=== PATIENT | male | born 1975 | race American Indian/Alaskan Native ===

== ENCOUNTER 2017-07-26 11:25 | Emergency (ER) | payer SELFPAY ==
[2017-07-26 11:44] VITALS: BMI 27.1
[2017-07-26] MEDS ORDERED: Naloxone 0.4 mg/ml Inj (Adult) IVP STA ×4 (12:01→13:48)
--- NOTE | 2017-07-26 12:05 | ED PDOC ---
Arrival/HPI - General Time Seen by Provider: 07/26/17 11:36 Historian: Patient (Patient providied limited history "I got tired and laid down."), EMS EM Caveat: Intoxicated - History of Present Illness Narrative History of Present Illness (Text): 07/26/17 12:02 A 42 year old male, whose past medical history includes asthmatic bronchitis, presents to the emergency department via EMS after being called by a friend who states the patient got tired and laid down on the ground on the street. As per EMS, the patient's friend removed something from the patient's pocket and left immediately upon their arrival. The patient admits to drinking alcohol, but denies any drug use. At this time the patient denies any trauma, chest pain, abdominal pain, headaches, or any other complaints at this time. Time/Duration: Prior to Arrival Symptom Onset: Sudden Symptom Course: Unchanged Quality: Other Activities at Onset: Light Context: Street Past Medical History - Provider Review Nursing Documentation Reviewed: Yes Family/Social History - Physician Review Nursing Documentation Reviewed: Yes Family/Social History: No Known Family HX Allergies/Home Meds Allergies/Adverse Reactions: Allergies No Known Allergies Allergy (Verified 07/26/17 11:57) Home Medications: Home Meds Medication Instructions Recorded Confirmed No Known Home Med 07/26/17 07/26/17 Review of Systems - Physician Review All systems were reviewed & negative as marked: Yes - Review of Systems Cardiovascular: absent: Chest Pain Gastrointestinal: absent: Abdominal Pain Neurological: absent: Headache Psychiatric: absent: Depression, Suicidal Ideation Physical Exam Vital Signs Reviewed: Yes Vital Signs Temp Pulse Resp BP Pulse Ox 07/26/17 16:57 97.9 F 70 16 121/73 100 07/26/17 13:25 97.7 F 77 17 128/93 H 98 07/26/17 11:45 97.6 F 96 H 22 106/52 L 96 Temperature: Afebrile Blood Pressure: Hypotensive Pulse: Tachycardic Respiratory Rate: Normal Appearance: Positive for: Well-Appearing, Non-Toxic, Comfortable Pain Distress: None Mental Status: Positive for: Alert and Oriented X 3 - Systems Exam Head: Present: Atraumatic, Normocephalic Pupils: Present: PERRL Extroacular Muscles: Present: EOMI Conjunctiva: Present: Normal Mouth: Present: Moist Mucous Membranes Nose (External): Present: Atraumatic Neck: Present: Normal Range of Motion Respiratory/Chest: Present: Clear to Auscultation, Good Air Exchange. No: Respiratory Distress, Accessory Muscle Use Cardiovascular: Present: Regular Rate and Rhythm, Normal S1, S2. No: Murmurs Abdomen: Present: Normal Bowel Sounds. No: Tenderness, Distention, Peritoneal Signs Back: Present: Normal Inspection Upper Extremity: Present: Normal Inspection. No: Cyanosis, Edema Lower Extremity: Present: Normal Inspection. No: Edema Neurological: Present: GCS=15, CN II-XII Intact, Speech Normal, Motor Func Grossly Intact, Normal Sensory Function. No: Other (focal decifits ) Skin: Present: Warm, Dry, Normal Color. No: Rashes Psychiatric: Present: Lethargic Medical Decision Making ED Course and Treatment: 07/26/17 12:24 Progress Notes: EKG: Ordered, reviewed, and independently interpreted the EKG. Rate : 70 BPM Rhythm : NSR Interpretation : No ST-segment elevations or depressions, no T-wave inversions, normal intervals, no acute ischemia. Comparison : No previous EKG for comparison. the pt was given several doses of narcan due to somnolence however this did not seem to have much effect. 07/26/17 16:19 the pt is now alert and oriented x4, pleasant, no distress, admits to drinking alcohol "since wednesday" and is ambulating around the ED with steady gait. - Lab Interpretations Lab Results: 07/26/17 12:15 07/26/17 12:15 Lab Results 07/26/17 13:54: Urine Opiates Screen Negative, Urine Methadone Screen Negative, Ur Barbiturates Screen Negative, Ur Phencyclidine Scrn Negative, Ur Amphetamines Screen Negative, U Benzodiazepines Scrn Negative, U Oth Cocaine Metabols Negative, U Cannabinoids Screen Negative 07/26/17 13:54: Urine Color Yellow, Urine Appearance Sl cloudy, Urine pH 6.0, Ur Specific Traphill 1.025, Urine Protein 30 H, Urine Glucose (UA) Negative, Urine Ketones Negative, Urine Blood Trace-intact H, Urine Nitrate Negative, Urine Bilirubin Negative, Urine Urobilinogen 0.2, Ur Leukocyte Esterase Negative , Urine RBC 1 - 3, Urine WBC 1 - 3, Ur Epithelial Cells 4 - 5, Urine Bacteria Many 07/26/17 12:15: Alcohol, Quantitative 236 H 07/26/17 12:15: Sodium 147, Potassium 4.0, Chloride 106, Carbon Dioxide 25, Anion Gap 20, BUN 14, Creatinine 1.1, Est GFR ( Amer) > 60, Est GFR (Non- Af Amer) > 60, Random Glucose 115 H, Calcium 9.0, Total Bilirubin 0.3, AST 61 H , ALT 66 H, Alkaline Phosphatase 119, Total Protein 7.7, Albumin 4.1, Globulin 3.5, Albumin/Globulin Ratio 1.2 07/26/17 12:15: WBC 7.4, RBC 5.05, Hgb 14.5, Hct 44.3, MCV 87.7, MCH 28.7, MCHC 32.7, RDW 13.0, Plt Count 235, MPV 10.5, Gran % 61.1, Lymph % (Auto) 30.8, Gregory % (Auto) 4.5, Eos % (Auto) 3.1, Baso % (Auto) 0.5, Gran # 4.50, Lymph # 2.3, Gregory # 0.3, Eos # 0.2, Baso # 0.04 - RAD Interpretation Radiology Orders: 07/26/17 12:00 HEAD W/O CONTRAST [CT] Stat CHEST PORTABLE [RAD] Stat - Medication Orders Current Medication Orders: Discontinued Medications Naloxone HCl (Narcan) 0.4 mg IVP STAT STA Stop: 07/26/17 12:02 Last Admin: 07/26/17 12:02 Dose: 0.4 mg IVP Administration Document 07/26/17 12:02 AB (Rec: 07/26/17 12:28 AB [id number]) Charges for Administration # of IVP Administrations 1 Naloxone HCl (Narcan) 0.8 mg IVP STAT STA Stop: 07/26/17 13:37 Last Admin: 07/26/17 13:37 Dose: 0.8 mg IVP Administration Document 07/26/17 13:37 SZA (Rec: 07/26/17 13:59 [facility] [id number] Charges for Administration # of IVP Administrations 1 Naloxone HCl (Narcan) 0.4 mg IVP STAT STA Stop: 07/26/17 13:43 Last Admin: 07/26/17 14:03 Dose: 0.4 mg IVP Administration Document 07/26/17 14:03 AB (Rec: 07/26/17 14:03 AB [id number]) Charges for Administration # of IVP Administrations 1 Naloxone HCl (Narcan) 0.4 mg IVP STAT STA Stop: 07/26/17 13:49 Last Admin: 07/26/17 14:01 Dose: 0.4 mg IVP Administration Document 07/26/17 14:01 AB (Rec: 07/26/17 14:02 AB [id number]) Charges for Administration # of IVP Administrations 1 - Scribe Statement The provider has reviewed the documentation as recorded by the Saraibhannah Varela Provider Scribe Attestation: All medical record entries made by the Scribe were at my direction and personally dictated by me. I have reviewed the chart and agree that the record accurately reflects my personal performance of the history, physical exam, medical decision making, and the department course for this patient. I have also personally directed, reviewed, and agree with the discharge instructions and disposition. Disposition/Present on Arrival - Present on Arrival Any Indicators Present on Arrival: No - Disposition Have Diagnosis and Disposition been Completed?: Yes Diagnosis: Alcohol intoxication Disposition: HOME/ ROUTINE Disposition Time: 16:20 Condition: STABLE Additional Instructions: Please follow up with your doctor. Return to the ER for any worsening symptoms or for any other concerns. Referrals: [facility] [place] [Outside] - Follow up with primary Forms: Year Up (Hungarian)
[2017-07-26 12:32] LABS: BASO # 0.04 K/mm3 (0.0-2.0); BASO % 0.5 % (0.0-3.0); EOS # 0.2 (0.0-0.7); EOS % 3.1 % (1.5-5.0); GRAN # 4.5 (1.4-6.5); GRAN % 61.1 % (50.0-68.0); HEMOGLOBIN 14.5 g/dL (14.0-18.0); LYMPH # 2.3 (1.2-3.4); LYMPH % 30.8 % (22.0-35.0); MEAN CELL VOLUME 87.7 fl (80.0-105.0); MEAN CORPUSCULAR HEMOGLOBIN 28.7 pg (25.0-35.0); MEAN CORPUSCULAR HGB CONC 32.7 g/dl (31.0-37.0); MEAN PLATELET VOLUME 10.5 fl (7.0-11.0); MONO # 0.3 (0.1-0.6); MONO % 4.5 % (1.0-6.0); RBC 5.05 10^6/uL (3.5-6.1); WHITE BLOOD COUNT 7.4 10^3/ul (4.5-11.0)
[2017-07-26 12:42] LABS: ALB/GLOB RATIO 1.2 (1.1-1.8); ALBUMIN 4.1 g/dL (3.0-4.8); ALT/SGPT 66 U/L (7-56); AST/SGOT 61 U/L (17-59); BLOOD UREA NITROGEN 14 mg/dL (7-21); GFR AFRICAN-AMERICAN > 60; GFR NON-AFRICAN AMERICAN > 60
--- NOTE | 2017-07-26 13:08 | CT ---
PROCEDURE: CT HEAD WITHOUT CONTRAST. HISTORY: ams COMPARISON: None available. TECHNIQUE: Axial computed tomography images were obtained through the head/brain without intravenous contrast. Radiation dose: Total exam DLP = 809.67 mGy-cm. This CT exam was performed using one or more of the following dose reduction techniques: Automated exposure control, adjustment of the mA and/or kV according to patient size, and/or use of iterative reconstruction technique. FINDINGS: HEMORRHAGE: No acute parenchymal, subarachnoid nor extra-axial hemorrhage. BRAIN: No obvious parenchymal nor extra-axial mass or collection seen on this noncontrast study. No mass effect or edema. No atrophy or chronic microvascular ischemic changes. VENTRICLES: No obstructive hydrocephalus. Minor asymmetry of the lateral ventricles left-sided which is slightly larger than the right felt to represent an anatomic variation. CALVARIUM: There are no acute calvarial fractures. Suspect mild scarring left superior frontal scalp. PARANASAL SINUSES: Unremarkable as visualized. No significant inflammatory changes. Prominent adenoids. MASTOID AIR CELLS: Unremarkable as visualized. No inflammatory changes. OTHER FINDINGS: None. IMPRESSION: No acute intracranial hemorrhage.
--- NOTE | 2017-07-26 13:09 | RAD ---
HISTORY: ams COMPARISON: No prior. FINDINGS: LUNGS: Poor inspiration with low lung volumes, crowded bronchovascular markings and mild bilateral atelectasis. Note that the left lung apex is partially obscured by overlying mandible and facial soft tissue artifact. PLEURA: No significant pleural effusion identified, no pneumothorax apparent. CARDIOVASCULAR: Normal. OSSEOUS STRUCTURES: No significant abnormalities. VISUALIZED UPPER ABDOMEN: The left Normal. OTHER FINDINGS: None. IMPRESSION: Poor inspiration with low lung volumes, crowded bronchovascular markings and mild bilateral atelectasis.
[2017-07-26] MEDS ORDERED: Naloxone 0.4 mg/ml Inj (Adult) ONE (13:35)
[2017-07-26 14:21] LABS: BARBITURATES, UR NEGATIVE (NEGATIVE); BENZODIAZEPINES, UR NEGATIVE (NEGATIVE); OPIATES, UR NEGATIVE (NEGATIVE); PHENCYCLIDINE, UR NEGATIVE (NEGATIVE)
[2017-07-26 14:34] LABS: URINE BILIRUBIN NEGATIVE (NEGATIVE); URINE BLOOD TRACE-INTACT (NEGATIVE); URINE GLUCOSE (UA) NEGATIVE (NEGATIVE); URINE LEUKOCYTE ESTERASE NEGATIVE Leu/uL (NEGATIVE); URINE NITRATE NEGATIVE (NEGATIVE); URINE PROTEIN 30 mg/dL (<30 mg/dL); URINE UROBILINOGEN 0.2 E.U./dL (<1 E.U./dL)
[2017-07-26 14:47] LABS: URINE COLOR YELLOW (YELLOW)
[2017-07-26 14:58] LABS: URINE APPEARANCE SL CLOUDY (CLEAR)
[2017-07-26 14:59] LABS: URINE BACTERIA MANY (NEG)
[2017-07-26 16:57] VITALS: BP 121/73; PULSE 70; RESP 16; TEMP 97.9; O2SAT 100
--- NOTE | 2017-07-27 09:55 | CARD ---
APPROVED REPORT EKG Measurement Heart [id number] <Conclusion> Normal sinus rhythm Normal ECG
== END 2017-07-26 16:57 | disposition home or self-care (01) ==
LOC: ED 11:25
DX: F10.129 Alcohol abuse with intoxication, unspecified (principal); Y90.7 Blood alcohol level of 200-239 mg/100 ml
CPT/HCPCS: 70450; 71045; 80053; 81001; 85025; 93005; 96374; 96376; 99284; G0480; J2310